=== PATIENT | male | born 1980 | race Caucasian/White ===

== ENCOUNTER 2020-01-07 00:01 | Emergency (ER) | payer SELFPAY ==
[~2020-01-07] VITALS: Ht 185.4 cm; Wt 97.5 kg
[2020-01-07 00:20] VITALS: BP 138/85
== END 2020-01-07 00:44 | disposition home or self-care (01) ==
LOC: ER 00:01
DX: S51.812A Laceration without foreign body of left forearm, initial encounter (principal); X58.XXXA Exposure to other specified factors, initial encounter; Y93.89 Activity, other specified; Y92.89 Other specified places as the place of occurrence of the external cause; Y99.8 Other external cause status
CPT/HCPCS: 99282; A6403